=== PATIENT | male | born 1970 | race Caucasian/White ===

== ENCOUNTER 2016-11-29 08:43 | Emergency (ER) | payer MEDICAID ==
[~2016-11-29] VITALS: Ht 167.6 cm; Wt 75.0 kg
[2016-11-29 08:59] VITALS: Ht 167.6 cm; Wt 75.0 kg
[2016-11-29] MEDS ORDERED: morphine 4 MG/ML VIAL IV STA (09:10)
[2016-11-29] MEDS ORDERED: ONDANSETRON 4 MG INJ IV STA (09:10)
[2016-11-29] MEDS ORDERED: SOD CHLORIDE 0.9% 1,000 ML IV STA (09:10)
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
[2016-11-29 09:38] LABS: ADD SCAN DIFF NO
[2016-11-29 09:50] LABS: ABNORMAL IP MESSAGE 1; BASOPHILS % 0.7 % (0.0-2.0); EOSINOPHILS # 0.3 10^3/ul (0.0-0.5); EOSINOPHILS % 4.5 % (0.0-7.0); HEMOGLOBIN 7.2 g/dl (14.0-18.0); LYMPHOCYTES # 0.8 10^3/ul (0.8-2.9); LYMPHOCYTES % 14.4 % (15.0-51.0); MEAN CORPUSCULAR HEMOGLOBIN 18.1 pg (29.0-33.0); MEAN CORPUSCULAR HGB CONC 27.7 g/dl (32.0-37.0); MEAN CORPUSCULAR VOLUME 65.5 fl (82.0-101.0); MEAN PLATELET VOLUME 9.5 fl (7.4-10.4); MONOCYTE # 0.4 10^3/ul (0.3-0.9); MONOCYTES % 6.8 % (0.0-11.0); NEUTROPHIL # 4.1 10^3/ul (1.6-7.5); NEUTROPHILS % 73.2 % (39.0-77.0); PLATELET COUNT 461 10^3/UL (140-415); RED BLOOD COUNT 3.97 10^6/ul (4.70-6.10); RED CELL DISTRIBUTION WIDTH 19.8 % (11.5-14.5); WHITE BLOOD COUNT 5.6 10^3/ul (4.8-10.8)
--- NOTE | 2016-11-29 10:04 | RADRPT ---
PROCEDURE: XR abdomen series. CLINICAL INDICATION: Abdominal Pain TECHNIQUE: AP supine and upright abdomen x-ray. COMPARISON: None. FINDINGS: The bowel gas pattern is normal. There is no evidence of obstruction. There appear to be a few calci fications projecting over the right renal lower pole region, measuring up to 5 mm. There is no efrain s abnormal soft tissue mass. The osseus structures are unremarkable. IMPRESSION: Unremarkable bowel gas pattern, without evidence for obstruction. Suspected right lower pole renal collecting system stones, measuring up to 5 mm. RPTAT: DD .Joe Gupta MD, Date Time Electronically viewed and signed by .Joe Gupta MD, on 11/29/2016 10:03 .T/
[2016-11-29 10:22] LABS: ALANINE AMINOTRANSFERASE 37 IU/L (13-69); ALBUMIN 4.3 g/dl (3.3-4.9); ALBUMIN/GLOBULIN RATIO 1.16; ALKALINE PHOSPHATASE 113 IU/L (42-121); ANION GAP 14 (8-16); ASPARTATE AMINO TRANSFERASE 30 IU/L (15-46); BILIRUBIN,INDIRECT 0.2 mg/dl (0-1.1); BILIRUBIN,TOTAL 0.2 mg/dl (0.2-1.3); BLOOD UREA NITROGEN 15 mg/dl (7-20); CALCIUM 9.1 mg/dl (8.4-10.2); CARBON DIOXIDE 21 mmol/L (21-31); CHLORIDE 108 mmol/L (97-110); CREATININE 0.97 mg/dl (0.61-1.24); GLUCOSE 108 mg/dl (70-220); POTASSIUM 3.4 mmol/L (3.5-5.1); SODIUM 140 mmol/L (135-144)
[2016-11-29] MEDS ORDERED: FER325 PO (10:33)
[2016-11-29] MEDS ORDERED: ONDA4TAB14 PO (10:33)
[2016-11-29 10:38] LABS: TROPONIN-I < 0.012 ng/ml (0.00-0.12)
[2016-11-29 10:57] VITALS: BP 117/78; PULSE 58; RESP 18
== END 2016-11-29 11:24 | disposition home or self-care (01) ==
LOC: E/R 08:43
DX: D64.9 Anemia, unspecified (principal); R11.2 Nausea with vomiting, unspecified
CPT/HCPCS: 36415; 74010; 80053; 83690; 84484; 85025; 93005; 96374; 96375; J2270; J2405; J7030; Z7502